=== PATIENT | female | born 1950 | race Caucasian/White ===

== ENCOUNTER 2017-01-05 14:35 | Emergency (ER) | payer MEDICARE, BC ==
[~2017-01-05] VITALS: Ht 167.6 cm; Wt 79.4 kg
[2017-01-05] MEDS: ASPIRIN 325 MG TABLET PO ONE ×2 (14:57→15:01)
[2017-01-05] MEDS ORDERED: ROPI0.5T PO (15:02)
[2017-01-05] MEDS ORDERED: ASPIRIN 325 MG TABLET ONE (15:12)
[2017-01-05 15:14] LABS: BASOPHILS % (AUTO) 0.9 % (0.0-2.0); EOSINOPHILS # (AUTO) 0.3 K/uL (0.0-0.7); EOSINOPHILS % (AUTO) 6.3 % (0.0-7.0); HEMATOCRIT 42.1 % (37-47); HEMOGLOBIN 13.8 G/DL (12.0-16.0); LYMPHOCYTES # (AUTO) 1.8 K/UL (0.8-4.8); LYMPHOCYTES % (AUTO) 32.7 % (20.5-51.5); MEAN CORPUSCULAR HEMOGLOBIN 29.1 UUG (27.0-31.0); MEAN CORPUSCULAR HGB CONC 33 g/dL (32.0-37.0); MEAN CORPUSCULAR VOLUME 88.8 FL (81.0-99.0); MONOCYTES # (AUTO) 0.3 K/UL (0.1-1.30); MONOCYTES % (AUTO) 5.8 % (0.0-11.0); NEUTROPHILS % (AUTO) 54.3 % (38.5-71.5); PLATELET COUNT (AUTO) 220 K/UL (150-450); RED BLOOD CELL COUNT(AUTO) 4.74 MIL/UL (4.2-5.4); WHITE BLOOD COUNT (AUTO) 5.4 K/UL (4.0-11.2)
[2017-01-05 15:22] LABS: CREATININE 0.9 mg/dL (0.6-1.3)
--- NOTE | 2017-01-05 16:01 | NUR ---
Patient is resting comfortably on gurney while using her personal electronic device, for repeat 1730 EKG & troponin at this time, no acute change in condition seen, NAD
--- NOTE | 2017-01-05 18:00 | NUR ---
Patient discharged to home in stable conditon. Written and verbal after care instructions given to patient. Patient verbalizes understanding of instructions. PATIENT IS PAIN FREE RIGHT NOW.
== END 2017-01-05 18:02 | disposition home or self-care (01) ==
LOC: ER 14:35
DX: R07.9 Chest pain, unspecified (principal)
CPT/HCPCS: 36415; 70030-TC; 71010; 85025; 85730; 93005; A4663